=== PATIENT | male | born 1995 | race Caucasian/White ===

== ENCOUNTER 2018-08-20 18:58 | Emergency (ER) | payer OTHER ==
[~2018-08-20] VITALS: Ht 167.6 cm; Wt 71.0 kg
[~2018-08-20 18:58] MED LIST: ATAZ300C PO; AZIT250T PO; CLOT30CR24 TOP; D-ME118S6 PO; FLUC100T39 PO; NORV100 PO; SULF1TAB31 PO; TRUV PO; [UNRECOGNIZED DRUG - CODE] TOP
[2018-08-20 19:08] VITALS: BP 134/75; PULSE 91; RESP 18; Ht 167.6 cm; Wt 71.0 kg
[2018-08-20] MEDS ORDERED: CLOT10TR MM (20:38)
[2018-08-20] MEDS ORDERED: NAPH15DR OP (21:22)
[2018-08-20] MEDS ORDERED: D-ME118S24 PO (21:22)
--- NOTE | 2018-08-21 07:26 | ERD ---
ER Documentation Chief Complaint Chief Complaint SORE THROAT WITH INTERMITTENT FEVERS/COUGH X 4 DAYS, HX OF HIV HPI 23-year-old male presents with intermittent fever and cough times 4 days patient does have a history of HIV. Patient also complains of bilateral red eyes. The fever is noted to be subjective. Patient also been having cough that is noted to be dry. Denies any sinus pain. He does admit to nasal congestion. He does admit however that the fever has improved with uiaz-lzg-rgyuvzf medication. No other complaints ROS All systems reviewed and are negative except as per history of present illness. Medications Home Meds Active Scripts D-Methorphan Hb/P-Epd HCl/Bpm (Tgqcbizfef-Nmmmixqkvum-Zo Syr) 118 Ml Syrup, 5 ML PO Q4H PRN for COUGH, #1 BOTTLE Prov:MAGDALENA CHANEY DO 08/20/18 Naphazoline Hcl/Phenir Mal (Naphcon-A Eye Drops) 15 Ml Drops, 15 ML OP QID PRN for conjunctivitis, #1 BOTTLE Prov:MAGDALENA CHANEY DO 08/20/18 Clotrimazole* (Clotrimazole*) 10 Mg Jose Alejandro, 10 MG MM 5 TIMES DAILY for oral thrush for 10 Days, #50 EACH Prov:MAGDALENA CHANEY DO 08/20/18 Dextromethorphan Hb-Promethazine Hcl (Promethazine DM Syrup) 180 Ml Syrup, 5 ML PO Q6H PRN for COUGH, #4 OZ Prov:ALLAN KRAMER 08/06/15 Podofilox (Podofilox) 0.5% - 3.5 Ml Solution, 3.5 ML TOP Q12 for 3 Days, EA Prov:ALLAN KRAMER 08/06/15 Azithromycin* (Zithromax*) 250 Mg Tablet, 250 MG PO .ZPACK DIRECTED, #6 TAB TAKE 500 MG (2 TABS) THE FIRST DAY THEN 250 MG (1 TAB) DAYS 2-5 Prov:ALLAN KRAMER 08/06/15 Clotrimazole* (Clotrimazole* AF) 1% - 30 Gm Cream.gm., 1 APPLIC TOP BID for 14 Days, TUB Apply to penile rash twice daily for 2 weeks Prov:CHUN RODRIGUEZ 02/26/15 Reported Medications Emtricitabine-Tenofovir* (Truvada*) 200-300 Mg Tab, 1 TAB PO DAILY, TAB 02/24/15 Atazanavir Sulfate* (Reyataz*) 300 Mg Capsule, 300 MG PO DAILY, CAP 02/24/15 Ritonavir* (Norvir*) 100 Mg Capsule, 100 MG PO DAILY, CAP 02/24/15 Fluconazole* (Fluconazole*) 100 Mg Tablet, 100 MG PO DAILY, TAB 02/24/15 Sulfamethoxazole-Trimethoprim (Bactrim DS Tablet) 800-160 Mg Tab, 1 TAB PO DAILY, TAB 02/24/15 Allergies Allergies: Coded Allergies: No Known Allergy (Unverified , 08/20/18) PMhx/Soc Medical and Surgical Hx: pt denies Medical Hx, pt denies Surgical Hx History of Surgery: No Anesthesia Reaction: No Hx Neurological Disorder: Yes (FREQUENT HEADACHES) Hx Respiratory Disorders: No Hx Cardiac Disorders: No Hx Psychiatric Problems: No Hx Miscellaneous Medical Probl: No Hx Alcohol Use: Yes (used to drink alcohol) Hx Substance Use: No Hx Tobacco Use: No Smoking Status: Current every day smoker Physical Exam Vitals Vital Signs Date Temp Pulse Resp B/P (MAP) Pulse Ox O2 O2 Flow FiO2 Time Delivery Rate 08/20/18 98.6 91 18 134/75 99 19:08 (94) Physical Exam Const: No acute distress Head: Atraumatic Eyes: Bilateral injections noted ENT: Normal External Ears, Nose normal, there was oral thrush noted on oral examination. Neck: Full range of motion. No meningismus. Resp: Clear to auscultation bilaterally Cardio: Regular rate and rhythm, no murmurs Abd: Soft, non tender, non distended. Normal bowel sounds Skin: No petechiae or rashes Back: No midline or flank tenderness Ext: No cyanosis, or edema Neur: Awake and alert Psych: Normal Mood and Affect Procedures/MDM Medical Decision Making: Differential diagnosis includes but not limited to upper respiratory infection, pneumonia, sepsis. Patient appeared well on physical examination, nontoxic appearing. Lungs were clear to auscultation bilaterally. There is low suspicion for pneumonia, sepsis. Patient likely has an upper respiratory infection, likely viral. Therefore antibiotics not indicated. Discussed symptomatic treatment with patient's mother who agrees with plan. Patient was also found oral thrush on physical exam. Patient given prescription for antifungal medication. Physical examination also revealed bilateral conjunctivitis consistent with viral conjunctivitis. Patient given prescription for supportive medications. Patient advised to follow up with PCP in 1-2 days. Patient advised to return to ED for new or worsening symptoms. Patient stable on discharge from the ED. Disclaimer: Inadvertent spelling and grammatical errors are likely due to EHR/dictation software use and do not reflect on the overall quality of patient care. Also, please note that the electronic time recorded on this note does not necessarily reflect the actual time of the patient encounter. Departure Diagnosis: Primary Impression: Oral thrush Additional Impressions: URI (upper respiratory infection) Conjunctivitis Condition: Fair Patient Instructions: Oral Thrush, Preventing Common Respiratory Infections Referrals: [facility] YOU HAVE RECEIVED A MEDICAL SCREENING EXAM AND THE RESULTS INDICATE THAT YOU DO NOT HAVE A CONDITION THAT REQUIRES URGENT TREATMENT IN THE EMERGENCY DEPARTMENT. FURTHER EVALUATION AND TREATMENT OF YOUR CONDITION CAN WAIT UNTIL YOU ARE SEEN IN YOUR DOCTORS OFFICE WITHIN THE NEXT 1-2 DAYS. IT IS YOUR RESPONSIBILITY TO MAKE AN APPOINTMENT FOR FOLOW-UP CARE. IF YOU HAVE A PRIMARY DOCTOR --you should call your primary doctor and schedule an appointment IF YOU DO NOT HAVE A PRIMARY DOCTOR YOU CAN CALL OUR PHYSICIAN REFERRAL HOTLINE AT IF YOU CAN NOT AFFORD TO SEE A PHYSICIAN YOU CAN CHOSE FROM THE FOLLOWING [facility] [id number] [facility]. [facility] [address] [facility] [facility] [address] [facility] [facility] [address] [facility] [facility] [address] [facility]. [facility]. [address] Additional Instructions: Call your primary care doctor TOMORROW for an appointment during the next 1-2 days.See the doctor sooner or return here if your condition worsens before your appointment time. Follow up with HIV specialist as soon as possible. MAGDALENA CHANEY DO Aug 21, 2018 07:26
== END 2018-08-20 21:30 | disposition home or self-care (01) ==
LOC: FTE 18:58
DX: B37.0 Candidal stomatitis (principal); J06.9 Acute upper respiratory infection, unspecified; H10.9 Unspecified conjunctivitis; F17.210 Nicotine dependence, cigarettes, uncomplicated
CPT/HCPCS: 71046; 87400; Z7502

== ENCOUNTER 2019-03-12 20:29 | Emergency (ER) | payer OTHER ==
[~2019-03-12] VITALS: Ht 167.6 cm; Wt 71.8 kg
[~2019-03-12 20:29] MED LIST changes: +BACTRIM PO; +CLOT10TR MM; +D-ME118S24 PO; +FLUC200T52 PO; +NAPH15DR OP; +OXYC-279 PO; +Work Note
[2019-03-12 20:39] VITALS: Ht 167.6 cm; Wt 71.8 kg
[2019-03-12 22:15] VITALS: BP 118/71; PULSE 84; RESP 17
== END 2019-03-12 22:15 | disposition home or self-care (01) ==
LOC: FTE 20:29
DX: J02.9 Acute pharyngitis, unspecified (principal); F17.210 Nicotine dependence, cigarettes, uncomplicated; B37.0 Candidal stomatitis; Z21 Asymptomatic human immunodeficiency virus [HIV] infection status
CPT/HCPCS: 36415; 86308; 87880; Z7502; 99283

== ENCOUNTER 2019-03-18 05:56 | Inpatient (IN) | payer OTHER ==
[2019-03-18] VITALS (12 sets, daily range): BP systolic 95–113; BP diastolic 50–66; PULSE 66–101; RESP 16–27; Ht 167.6 cm; Wt 69.1 kg
[~2019-03-18] VITALS: Ht 167.6 cm; Wt 69.1 kg
[~2019-03-18 05:56] MED LIST changes: +CIPR500T4 PO; +DOCU100T PO; +IBUP-1542 PO; +METR500T PO; +ONDA4TAB14 PO; +SYMTUZA PO
[2019-03-18] MEDS ORDERED: SOD CHLORIDE 0.9% 1,000 ML IV STA (07:19)
[2019-03-18] MEDS ORDERED: morphine 4 MG/ML VIAL IV STA (07:19)
[2019-03-18] MEDS ORDERED: PIPER-TAZO 3.375 GM IV (PMX) 100 ML IVPB ONE (07:30)
[2019-03-18] MEDS: SOD CHLORIDE 0.9% 1,000 ML IV SCH ×2 (12:22→17:39)
[2019-03-18] MEDS ORDERED: morphine 2 MG INJ IV PRN ×2 (12:30→22:30)
[2019-03-18] MEDS ORDERED: ACETAMINOPHEN 325 MG TAB PO PRN (12:30)
[2019-03-18] MEDS ORDERED: ONDANSETRON 4 MG INJ IV PRN ×3 (12:30→22:30)
[2019-03-18] MEDS ORDERED: NACL 0.9% 3 ML SYG IV SCH (12:30)
[2019-03-18] MEDS ORDERED: HYDROCODONE/APAP (5/325) TAB PO PRN ×2 (12:30→22:30)
[2019-03-18] MEDS: PIPER-TAZO 3.375 GM IV (PMX) 100 ML IVPB SCH ×3 (13:02→23:39)
[2019-03-18] MEDS ORDERED: KETOROLAC 30 MG INJ IV STA (15:37)
[2019-03-18] MEDS ORDERED: LIDOCAINE 1%/EPI (1:100,000) (MDV) 20 ML ONE (20:53)
[2019-03-18] MEDS ORDERED: BUPIVACAINE 0.25% (MPF) 30 ML INJ ONE (20:53)
[2019-03-18] MEDS ORDERED: SEVOFLURANE 15 MIN ONE (21:00)
[2019-03-18] MEDS ORDERED: MIDAZOLAM 1 MG/ML 2 ML INJ ONE (21:14)
[2019-03-18] MEDS ORDERED: LIDOCAINE 2% (SDV) 5 ML INJ ONE (21:54)
[2019-03-18] MEDS ORDERED: ROCURONIUM 50 MG INJ ONE (21:54)
[2019-03-18] MEDS ORDERED: NEOSTIGMINE 3 MG/3 ML SYRINGE ONE (21:54)
[2019-03-18] MEDS ORDERED: PROPOFOL 20 ML ONE (21:54)
[2019-03-18] MEDS ORDERED: GLYCOPYRROLATE 0.4 MG INJ ONE (21:54)
[2019-03-18] MEDS ORDERED: ONDANSETRON 4 MG INJ ONE (21:54)
[2019-03-18] MEDS ORDERED: SUGAMMADEX SODIUM 200 MG/2 ML VIAL IV ONE (21:54)
[2019-03-18] MEDS ORDERED: ROPIVACAINE 0.5 % 30 ML VIAL ONE (21:55)
[2019-03-18] MEDS ORDERED: FENTAnyl 50 MCG/ML VIAL IV PRN (22:30)
[2019-03-18] MEDS ORDERED: KETOROLAC 30 MG INJ IV PRN (22:30)
[2019-03-18] MEDS ORDERED: HYDROmorphONE 1 MG/5 ML IV SYRINGE IV PRN ×2 (22:30)
[2019-03-18] MEDS ORDERED: MEPERIDINE 25 MG INJ IV PRN (22:30)
[2019-03-18] MEDS ORDERED: DIPHENHYDRAMINE 50 MG INJ IV PRN (22:30)
[2019-03-19] VITALS (7 sets, daily range): BP systolic 103–121; BP diastolic 56–75; PULSE 75–110; RESP 16–21
[2019-03-19] MEDS: ACETAMINOPHEN 325 MG TAB PO PRN ×3 (01:30→20:21)
[2019-03-19] MEDS: PIPER-TAZO 3.375 GM IV (PMX) 100 ML IVPB SCH ×3 (05:45→18:07)
[2019-03-19] MEDS: ENOXAPARIN 40 MG/0.4 ML SYG SC SCH (06:38)
[2019-03-19] MEDS: SOD CHLORIDE 0.9% 1,000 ML IV SCH ×3 (08:30→18:06)
[2019-03-19] MEDS ORDERED: EMTRICITABINE/TENOFOVIR TAB PO SCH (09:00)
[2019-03-19] MEDS ORDERED: ATAZANAVIR 150 MG CAP PO SCH (09:00)
[2019-03-19] MEDS ORDERED: RITONAVIR 100 MG CAP PO SCH (09:00)
[2019-03-19] MEDS ORDERED: POTASSIUM CHLORIDE (SR) 20 MEQ TAB PO STA (15:04)
[2019-03-20] MEDS: PIPER-TAZO 3.375 GM IV (PMX) 100 ML IVPB SCH ×2 (00:23→06:33)
[2019-03-20 02:00] VITALS: BP 111/61; PULSE 67; RESP 18
[2019-03-20] MEDS: SOD CHLORIDE 0.9% 1,000 ML IV SCH ×3 (02:28→14:30)
[2019-03-20] MEDS: ENOXAPARIN 40 MG/0.4 ML SYG SC SCH (06:35)
[2019-03-20 08:27] VITALS: BP 116/63; PULSE 78; RESP 16
[2019-03-20] MEDS ORDERED: TRIMETHOPRIM/SULFAMETHOX (SS) TAB PO SCH (09:00)
[2019-03-20] MEDS ORDERED: FLUCONAZOLE 100 MG TAB PO SCH (09:00)
[2019-03-20 14:25] VITALS: BP 113/62; PULSE 77; RESP 17
== END 2019-03-20 16:35 | disposition home or self-care (01) | DRG 342 ==
LOC: FTE 05:56 → 2NE 09:18 → CANRESERV 15:24 → 2NE 16:48
PROVIDERS: ADMIT Internal Medicine; ATTEND Internal Medicine
PROC: 0DTJ4ZZ Resection of Appendix, Percutaneous Endoscopic Approach (ICD-10-PCS; principal; 2019-03-18 21:00)
DX: K35.80 Unspecified acute appendicitis (principal); B20 Human immunodeficiency virus [HIV] disease; B37.0 Candidal stomatitis; J45.909 Unspecified asthma, uncomplicated; K21.9 Gastro-esophageal reflux disease without esophagitis; D64.9 Anemia, unspecified; F17.200 Nicotine dependence, unspecified, uncomplicated
CPT/HCPCS: 36415; 74176; 80053; 81001; 83690; 83735; 84100; 85025; 86360; 88304; 96365; 96375; J1650; J1885; J2250; J2270; J2405; J2543; J2710; J2795; J3010; J7030

== ENCOUNTER 2019-04-23 16:27 | Emergency (ER) | payer OTHER ==
[~2019-04-23] VITALS: Ht 165.1 cm; Wt 65.5 kg
[~2019-04-23 16:27] MED LIST changes: -ATAZ300C PO; -AZIT250T PO; -CLOT10TR MM; -CLOT30CR24 TOP; -D-ME118S24 PO; -D-ME118S6 PO; -FLUC100T39 PO; -FLUC200T52 PO; +HC30CR25 TOP; +LACT1CAP57 PO; -NAPH15DR OP; -NORV100 PO; -OXYC-279 PO; +PSYL1040 PO; -SULF1TAB31 PO; -TRUV PO; -Work Note; -[UNRECOGNIZED DRUG - CODE] TOP
[2019-04-23 16:30] VITALS: Ht 165.1 cm; Wt 65.5 kg
[2019-04-23] MEDS ORDERED: morphine 4 MG/ML VIAL IV STA (17:20)
[2019-04-23] MEDS ORDERED: HYDROCODONE/APAP (10/325) TAB PO ONE (17:30)
[2019-04-23] MEDS ORDERED: SOD CHLORIDE 0.9% 100 ML ONE (18:01)
[2019-04-23] MEDS ORDERED: IOHEXOL 300MG/ML 150 ML BTL ONE (18:01)
[2019-04-23 20:09] VITALS: BP 104/57; PULSE 88; RESP 18
== END 2019-04-23 20:09 | disposition home or self-care (01) ==
LOC: FTE 16:27
DX: K59.00 Constipation, unspecified (principal); F17.210 Nicotine dependence, cigarettes, uncomplicated; R10.9 Unspecified abdominal pain; Z21 Asymptomatic human immunodeficiency virus [HIV] infection status
CPT/HCPCS: 36415; 74177; 80053; 85025; 85610; 85730; 86850; 86900; 86901; 96374; J2270; Q9967; Z7502; Z7610